=== PATIENT | male | born 1970 | race Caucasian/White ===

== ENCOUNTER → 2016-12-15 | Outpatient (CLI) | payer BC ==
[2016-12-15 08:18] LABS: HEMATOCRIT 43.4 % (37.9-51.0); HEMOGLOBIN 14.5 g/dL (13.5-17.0); HGB HCT DIFFERENCE 0.1; MEAN CORPUSCULAR HEMOGLOBIN 28.3 pg (27.0-33.4); MEAN CORPUSCULAR HGB CONC 33.5 g/dL (32.0-36.0); MEAN CORPUSCULAR VOLUME 85 fl (80-97); RED BLOOD COUNT 5.13 10^6/uL (4.35-5.55); RED CELL DISTRIBUTION WIDTH 13.9 % (11.5-14.0); WHITE BLOOD COUNT 7.5 10^3/uL (4.0-10.5)
[2016-12-15 08:46] LABS: CHOLESTEROL 74.88 mg/dL (0-200); Direct HDL 19 mg/dL (>40); MAGNESIUM 2.1 mg/dL (1.6-2.3); TRIGLYCERIDES 272 mg/dL (<150)
[2016-12-15 09:00] LABS: ERYTHROCYTE SEDIMENTATION RATE 6 mm/hr (0-15)
[2016-12-15 09:03] LABS: DIRECT LDL < 30 mg/dL (<100); VLDL CHOLESTEROL 54.4 mg/dL (10-31)
[2016-12-15 09:10] LABS: THYROID STIMULATING HORMONE 0.34 uIU/mL (0.47-4.68)
== END ==
LOC: OD 07:26
PROVIDERS: ATTEND Internal Medicine Cardiovascular Disease
DX: R07.9 Chest pain, unspecified (principal); R06.02 Shortness of breath; E78.2 Mixed hyperlipidemia; E11.65 Type 2 diabetes mellitus with hyperglycemia
CPT/HCPCS: 36415; 80061; 83735; 84439; 84443; 85027; 85652